=== PATIENT | male | born 1970 | race Caucasian/White ===

== ENCOUNTER → 2021-10-11 | Outpatient (CLI) | payer OTHER ==
--- NOTE | 2021-10-11 13:42 | DIREP ---
PROCEDURE:XRAY ELBOW 2VWS-RT COMPARISON:None. INDICATIONS:RIGHT ELBOW PAIN FINDINGS:AP and lateral view of the right elbow BONES:No evidence of acute fracture. JOINTS:Normal. No displaced anterior or posterior fat pads. SOFT TISSUES:Normal. OTHER:Normal. CONCLUSION:No acute visible fracture. See above description. Dictated by: Reynaldo Byrnes MD on 10/11/2021 at 01:40 PM
== END | disposition home or self-care (01) ==
LOC: RAD 11:57
PROVIDERS: ATTEND Nurse Practitioner Family
DX: M25.521 Pain in right elbow (principal)
CPT/HCPCS: 73070-RT

== ENCOUNTER → 2025-07-12 | Outpatient (CLI) | payer OTHER | END | disposition home or self-care (01) | LOC: RAD 13:07 | PROVIDERS: ATTEND Nurse Practitioner Family | DX: S62.001A Unspecified fracture of navicular [scaphoid] bone of right wrist, initial encounter for closed fracture (principal); S63.502A Unspecified sprain of left wrist, initial encounter; M19.031 Primary osteoarthritis, right wrist; M25.731 Osteophyte, right wrist; M25.831 Other specified joint disorders, right wrist; M25.532 Pain in left wrist; M25.531 Pain in right wrist; X58.XXXA Exposure to other specified factors, initial encounter; Y93.89 Activity, other specified; Y92.89 Other specified places as the place of occurrence of the external cause; Y99.8 Other external cause status | CPT/HCPCS: 73110-LT; 73110-RT ==

== ENCOUNTER → 2025-08-01 | Outpatient (CLI) | payer BC | END | disposition home or self-care (01) | LOC: RAD 15:21 | PROVIDERS: ATTEND Orthopaedic Surgery | DX: M19.022 Primary osteoarthritis, left elbow (principal); M25.722 Osteophyte, left elbow; M25.522 Pain in left elbow | CPT/HCPCS: 73070-LT ==

== ENCOUNTER 2025-09-07 05:55 | Day surgery (SDC) | payer BC ==
[2025-08-21 14:05] VITALS: BP 135/92; PULSE 73; RESP 18; TEMP 97.7; O2SAT 97
[2025-08-21 14:47] LABS: BASOPHIL # 0.0 10^3/uL (0.0-0.1); BASOPHIL % 0.5 % (0.2-1.2); EOSINOPHIL # 0.2 10^3/uL (0.0-0.2); EOSINOPHIL % 2.0 % (0.0-5.0); HEMATOCRIT(ML) 43.2 % (37.0-53.0); IG % 0.20 % (0.00-0.50); LYMPHOCYTES # 2.24 10^3/uL1 (1.0-4.8); LYMPHOCYTES % 26.0 % (24.0-44.0); MEAN CORP HGB 28.9 pg (26-34); MEAN CORP HGB CONCENTRATION 34.0 g/dL (33-36.5); MEAN CORP VOLUME 85.0 fL (78-100); MONOCYTES # 0.8 10^3/uL (0.3-0.8); MONOCYTES % 9.3 % (5.0-12.0); NEUTROPHIL # 5.4 10^3/uL (1.8-7.7); NEUTROPHILS % 62.0 % (41.0-85.0); RED BLOOD CELL 5.08 10^6/uL (4.50-5.90); RED CELL DISTRIBUTION WIDTH 12.4 % (11.5-14.5); WHITE BLOOD CELL 8.6 10^3/uL (4.5-11.0)
[2025-08-21 15:02] LABS: ALANINE AMINOTRANSFERASE(ML) 37.0 U/L (12-78); ALBUMIN(ML) 4.0 g/dL (3.4-5.0); CREATININE SERUM 0.92 mg/dL (0.59-1.40); EST GFR, NON-AA 86.4 (>/=60)
[~2025-09-07] VITALS: Ht 182.9 cm; Wt 104.3 kg
[2025-09-07] VITALS (7 sets, daily range): BP systolic 102–139; BP diastolic 57–87; PULSE 54–68; RESP 16; TEMP 97.2–97.6; O2SAT 92–99
[~2025-09-07 05:55] MED LIST: IBUP-1127 PO
[2025-09-07] MEDS ORDERED: LACTATED RINGERS 1,000 ML ONE ×2 (06:05→08:56)
[2025-09-07] MEDS: LACTATED RINGERS 1,000 ML IV ONE (06:10)
[2025-09-07] MEDS ORDERED: XYLOCAINE 1%-EPI ONE (07:13)
[2025-09-07] MEDS ORDERED: SODIUM CHLORIDE IRR BOTTLE IR ONE (07:13)
[2025-09-07] MEDS ORDERED: LIDOCAINE 1% VIAL ONE (07:13)
[2025-09-07] MEDS ORDERED: OFIRMEV 100 ML IV ONE (07:45)
[2025-09-07] MEDS ORDERED: TORADOL ONE (07:45)
[2025-09-07] MEDS ORDERED: KETALAR ONE (07:46)
[2025-09-07] MEDS ORDERED: XYLOCAINE 2% 5ML VIAL ONE (07:46)
[2025-09-07] MEDS ORDERED: DIPRIVAN IV ONE (07:46)
[2025-09-07] MEDS ORDERED: VERSED ONE (07:46)
[2025-09-07] MEDS ORDERED: SUBLIMAZE 100MCG/2ML ONE (07:47)
[2025-09-07] MEDS ORDERED: KENALOG-40 ONE (08:14)
[2025-09-07] MEDS ORDERED: TRAM50TA PO (09:21)
== END 2025-09-07 10:22 | disposition home or self-care (01) ==
LOC: SDC 05:55
PROVIDERS: ATTEND Orthopaedic Surgery
DX: G56.01 Carpal tunnel syndrome, right upper limb (principal); M19.022 Primary osteoarthritis, left elbow; Z82.49 Family history of ischemic heart disease and other diseases of the circulatory system; Z82.3 Family history of stroke
CPT/HCPCS: 80053; 85025; 36415; 64721; 01810; 20605; J1885; J7120 ×3; A4649; J2003 ×2; A4217; J0131; J2704; J3301; J2250; J3010